=== PATIENT | male | born 1995 | race Caucasian/White ===

== ENCOUNTER 2019-12-05 00:51 | Emergency (ER) | payer BC ==
[~2019-12-05] VITALS: Ht 185.4 cm; Wt 102.3 kg
[~2019-12-05 00:51] MED LIST: ADDERALL10 MG PO; BACTROBAN 22GM22 GM TP; CONCERTA18 MG; NO HOME MEDICATIONS; PERCOCET 325 MG1 TA2 PO; RISPERDAL 0.5M0.5 MG PO; ZITHROMAX 250M250 MG PO
[2019-12-05 01:12] VITALS: TEMP 98.3
[2019-12-05] MEDS ORDERED: FLEXERIL 1010 MG/TAB PO (01:32)
[2019-12-05 02:02] VITALS: BP 139/70; PULSE 80
== END 2019-12-05 01:30 | disposition home or self-care (01) ==
LOC: COL.ER 00:51
DX: S39.012A Strain of muscle, fascia and tendon of lower back, initial encounter (principal); F17.200 Nicotine dependence, unspecified, uncomplicated; W01.198A Fall on same level from slipping, tripping and stumbling with subsequent striking against other object, initial encounter; Y92.009 Unspecified place in unspecified non-institutional (private) residence as the place of occurrence of the external cause